=== PATIENT | male | born 1990 | race Two or more races ===

== ENCOUNTER 2023-12-08 12:46 | Emergency (ER) | payer OTHER ==
[~2023-12-08] VITALS: Ht 177.8 cm; Wt 102.1 kg
[2023-12-08 12:47] VITALS: BP 137/74; TEMP 98.1; O2SAT 98
[2023-12-08] MEDS ORDERED: PRED50TA PO (15:06)
[2023-12-08] MEDS ORDERED: HYDR453.3 TP (15:06)
== END 2023-12-08 15:18 | disposition home or self-care (01) ==
LOC: ER 12:46
DX: R21 Rash and other nonspecific skin eruption (principal)